=== PATIENT | female | born 1985 | race Caucasian/White ===

== ENCOUNTER 2018-03-22 07:06 | Day surgery (SDC) | payer OTHER ==
[~2018-03-22] VITALS: Ht 149.9 cm; Wt 56.7 kg
[~2018-03-22 07:06] MED LIST: CETI5 PO; CHOL10002 PO; Cymbalta60 MG PO; DULO60; DULOXETINE HCL60 MG PO; FERROUS SULFATE PO; IBUP600 PO; MEDR150I IM; Norco 5-325 Ta1 EACH PO; ONDA4 PO; PROM25 PO; Percocet 5-3251 EACH PO; Vitamin D2000 UNIT PO; Voltaren100 GM TOP
== END 2018-03-22 22:35 | disposition home or self-care (01) ==
LOC: ORSCMMR 07:06 → ORD 08:45 → ORSCMMR 22:35
PROVIDERS: Surgery
PROC: 0JBH0ZX Excision of Left Lower Arm Subcutaneous Tissue and Fascia, Open Approach, Diagnostic (ICD-10-PCS; principal; 2018-03-22 08:45)
DX: Q85.01 Neurofibromatosis, type 1 (principal); D23.9 Other benign neoplasm of skin, unspecified; Z79.899 Other long term (current) drug therapy
CPT/HCPCS: 88305; J0690; J1100; J2250; J2405; J3010; J7120

== ENCOUNTER 2018-09-03 09:03 | Day surgery (SDC) | payer OTHER ==
[~2018-09-03] VITALS: Ht 152.4 cm; Wt 54.7 kg
[~2018-09-03 09:03] MED LIST changes: +Depo-Prove150 MG/11 IM
== END 2018-09-03 13:07 | disposition home or self-care (01) ==
LOC: ORSCSDS 09:03
PROVIDERS: Obstetrics & Gynecology
PROC: 0U5F4ZZ Destruction of Cul-de-sac, Percutaneous Endoscopic Approach (ICD-10-PCS; principal; 2018-09-03 10:30)
DX: N92.5 Other specified irregular menstruation (principal); N80.3 Endometriosis of pelvic peritoneum; N94.6 Dysmenorrhea, unspecified; R10.2 Pelvic and perineal pain; Z79.899 Other long term (current) drug therapy
CPT/HCPCS: J0690; J1100; J1885; J2250; J2405; J2710; J3010; J7120

== ENCOUNTER 2019-05-13 07:36 | Day surgery (SDC) | payer OTHER ==
[~2019-05-13] VITALS: Ht 152.4 cm; Wt 55.0 kg
[~2019-05-13 07:36] MED LIST changes: +GABA600 PO
--- NOTE | 2019-05-13 08:24 | NUR ---
Ambulatory in Day Surgery History, Chart, Medications and Allergies reviewed before start of procedure.Lungs clear T/O to Auscultation. Patient confirms NPO status and agrees with scheduled surgery.
--- NOTE | 2019-05-13 08:39 | NUR ---
PT HAS AREAS ON FACE AND NOSE THAT HAVE BEEN TAPPED SINCE PIERCING PRESENT. PT HAS SIGNED FORM. IS BEING BROUGHT BACK TO BEDSIDE.
--- NOTE | 2019-05-13 08:48 | NUR ---
PT LAYING IN BED QUIET ON PHONE WITH AT BEDSIDE.
--- NOTE | 2019-05-13 08:57 | NUR ---
CHIKIS DIRECTOR COMPLIANCE AT BEDSIDE REPORT DONE.
--- NOTE | 2019-05-13 09:58 | NUR ---
NO ORDERS GIVEN FROM DR VEGA OR DR PEARL.
--- NOTE | 2019-05-13 10:03 | NUR ---
ALL PERSONAL BELONGINGS SENT WITH PT INCLUDING PHONE AND BLANKET
--- NOTE | 2019-05-13 12:18 | NUR ---
RECEIVED REPORT FROM DR PEARL. PT IS GROGGY BUT ANSWERS QUESTIONS. X3 ABD SITES CDI WITH BANDAINDS. DEVIKA PAD IN PLACE NO BLOOD NOTED. VSS
--- NOTE | 2019-05-13 12:48 | NUR ---
PT SPOKE ON THE PHONE WITH HER MOTHER. PT IS SHOWING RN PICTURES OF HER DAUGHTER ON HER PHONE. WAITING FOR MD TO PLACE ORDERS FOR PT TO STAY IN HOSPTIAL OR BE DISCHARGED HOME.
--- NOTE | 2019-05-13 12:54 | NUR ---
PT NOW RESTING QUIETLY IN BED WITH EYES CLOSED. NO COMPLAINTS AT THIS TIME.
--- NOTE | 2019-05-13 12:59 | NUR ---
DR CORADO PLACED ORDERS FOR PT TO STAY EXTENDED RECOVERY. RN CALLED FLOOR RN AND WILL GIVE REPORT
--- NOTE | 2019-05-13 13:25 | NUR ---
PT ARRIVED TO UNIT AT APROX 1315. LAP SITES X'S 3 W/BANAIDS C/D/I. DEVIKA PAD WITH SCANT AMT DRAINAGE PRESENT. PT DENIES PAIN AT THIS TIME. JAIN PATENT, DRAINING CLEAR YELLOW URINE. PT REQUESTING CRACKERS AND WATER-PT IS ADVANCE DIET TOLERATED AND HAS BEEN TOLERATING CLEAR LIQUIDS WITH NO N/V IN PACU. EXTENDED RECOVERY WITH A POSIBILITY OF DC TONIGHT PER PT-WILL CALL WONDERLY FOR CLARIFICATION.
[2019-05-13] MEDS ORDERED: GABA300 PO (18:24)
[2019-05-13] MEDS ORDERED: ESTR2 PO (18:25)
[2019-05-13] MEDS ORDERED: IBUP800 PO (18:25)
[2019-05-13] MEDS ORDERED: Milk Of Ma400 MG/5 M PO (18:26)
[2019-05-13] MEDS ORDERED: SIME80CH PO (18:27)
[2019-05-13] MEDS ORDERED: PROM25 PO (18:27)
[2019-05-13] MEDS ORDERED: Percocet 5-3251 EACH PO (18:27)
== END 2019-05-13 18:58 | disposition home or self-care (01) ==
LOC: ORSCMMR 07:36 → ORD 09:30 → SURS 13:08 → ORSCMMR 18:58
PROVIDERS: Obstetrics & Gynecology
PROC: 0UT2FZZ Resection of Bilateral Ovaries, Via Natural or Artificial Opening With Percutaneous Endoscopic Assistance (ICD-10-PCS; principal; 2019-05-13 09:30)
PROC: 0UT9FZZ Resection of Uterus, Via Natural or Artificial Opening With Percutaneous Endoscopic Assistance (ICD-10-PCS; principal; 2019-05-13 09:30)
PROC: 0UT7FZZ Resection of Bilateral Fallopian Tubes, Via Natural or Artificial Opening With Percutaneous Endoscopic Assistance (ICD-10-PCS; principal; 2019-05-13 09:30)
DX: N80.3 Endometriosis of pelvic peritoneum (principal); N94.6 Dysmenorrhea, unspecified; N92.0 Excessive and frequent menstruation with regular cycle; N94.10 Unspecified dyspareunia; M41.9 Scoliosis, unspecified; Q85.00 Neurofibromatosis, unspecified; Z79.899 Other long term (current) drug therapy
CPT/HCPCS: 88307; J0690; J1100; J1885; J2250; J2405; J2704; J3010; J7120

== ENCOUNTER → 2021-01-31 | Outpatient (CLI) | payer OTHER ==
[~2021-01-31] MED LIST changes: +ESTR2 PO; +GABA300 PO; +IBUP800 PO; +Milk Of Ma400 MG/5 M PO; +SIME80CH PO
== END ==
LOC: PLD 08:06 → LAB SHORT 08:06
DX: Q85.01 Neurofibromatosis, type 1 (principal)
CPT/HCPCS: 88305